=== PATIENT | female | born 1990 | race Caucasian/White ===

== ENCOUNTER 2016-12-07 18:02 | Observation (INO) | payer BC ==
[~2016-12-07] VITALS: Ht 157.5 cm; Wt 73.8 kg
[2016-12-07 19:07] LABS: CHLORIDE 111 mEq/L (99-109); POTASSIUM 3.9 mEq/L (3.7-5.4); SODIUM 144 mEq/L (136-147)
[2016-12-07 19:08] LABS: GLUCOSE 80 mg/dL (70-99)
[2016-12-07 19:10] LABS: ANION GAP 12 MEQ/L (2-14)
[2016-12-07 19:12] LABS: GFR ESTIMATE (CALCULATED) > 59 mL/min/
[2016-12-07 19:13] LABS: UREA NITROGEN (BUN) 15 mg/dL (9-23)
[2016-12-07] MEDS ORDERED: ADVIL,NUPRIN,M200 MG PO (22:26)
[2016-12-07] MEDS ORDERED: PRENATAL TABLE1 EAC3 PO (22:26)
[2016-12-07 23:52] LABS: BASOPHIL COUNT 0.1 K/uL (0-0.1); EOSINOPHIL (%) 0.9 % (0-5); EOSINOPHIL COUNT 0.1 K/uL (0-0.3); HEMATOCRIT 39.3 % (36.0-46.0); IMMATURE GRANULOCYTE (%) 1.2 % (0.0-0.7); IMMATURE GRANULOCYTE COUNT 0.1 K/uL; INSTRUMENT ABS NEUTROPHIL CT 9.2 K/uL; LYMPHOCYTE COUNT 1.1 K/uL (1.0-2.8); MCH 29.2 PG (29.0-34.0); MCHC 33.6 G/DL (30.0-36.0); MCV 86.9 FL (83-99); MEAN PLAT.VOLUME 9.2 uM^3 (9.5-12.4); MONOCYTE COUNT 0.9 K/uL (0-0.8); NEUTROPHIL (%) 79.9 % (45-76); NEUTROPHIL COUNT 9.2 K/uL (1.8-6.4); NRBC (%) 0.3 /100 WBC (0-0); PLATELET COUNT 335 K/uL (156-360); RBC DIS.WIDTH-CV 14.3 % (11.8-14.6); RBC DIS.WIDTH-SD 45.1 % (39-53); RED BLOOD COUNT 4.52 M/uL (3.80-5.20); WHITE BLOOD COUNT 11.5 K/uL (4.1-10.2)
[2016-12-08 01:40] VITALS: BP 162/96
[2016-12-08 04:36] VITALS: BP 161/91
[2016-12-08 07:22] VITALS: BP 158/94
[2016-12-08 07:30] LABS: TROP-I INTERPRETATION NEGATIVE; TROPONIN-I 0.02 ng/mL (0.0-0.30)
[2016-12-08 13:20] VITALS: BP 137/90
[2016-12-08 14:33] LABS: TROP-I INTERPRETATION NEGATIVE; TROPONIN-I < 0.01 ng/mL (0.0-0.30)
[2016-12-08 15:45] VITALS: BP 120/78
[2016-12-08 18:45] LABS: TROP-I INTERPRETATION NEGATIVE; TROPONIN-I < 0.01 ng/mL (0.0-0.30)
[2016-12-08 20:45] VITALS: BP 118/73
[2016-12-09] VITALS: BP 125/74
[2016-12-09 04:22] VITALS: BP 128/78
[2016-12-09 08:26] VITALS: BP 120/81
[2016-12-09 09:06] LABS: HEMATOCRIT 44.9 % (36.0-46.0); MCH 29.1 PG (29.0-34.0); MCV 88.2 FL (83-99); MEAN PLAT.VOLUME 9.4 uM^3 (9.5-12.4); PLATELET COUNT 377 K/uL (156-360); RBC DIS.WIDTH-SD 45.1 % (39-53); RED BLOOD COUNT 5.09 M/uL (3.80-5.20); WHITE BLOOD COUNT 7.7 K/uL (4.1-10.2)
[2016-12-09 09:38] LABS: ANION GAP 11 MEQ/L (2-14); CHLORIDE 102 MEQ/L (99-109); GFR ESTIMATE (CALCULATED) > 59 mL/min/; GLUCOSE 77 mg/dL (70-99); POTASSIUM 4.2 MEQ/L (3.7-5.4); SAMPLE HEMOLYSIS CHECK 0; SAMPLE ICTERIC CHECK 0; SAMPLE LIPEMIA CHECK 0; SODIUM 141 MEQ/L (136-147); UREA NITROGEN (BUN) 14 mg/dL (9-23)
[2016-12-09 11:19] VITALS: BP 116/74
[2016-12-09] MEDS ORDERED: AMOX TR-K CLV1 EAC4 PO (11:59)
[2016-12-09] MEDS ORDERED: HYDROCHLOROTH12.5 M3 PO (12:00)
== END 2016-12-09 13:17 | disposition home or self-care (01) ==
LOC: EME 18:02 → EDOF 23:21 → 2EASTP 23:21 → EDOF 23:21 → 2EASTP 12-08 01:10
PROVIDERS: Emergency Medicine; Hospitalist; Physician Assistant
DX: O90.3 Peripartum cardiomyopathy (principal); J18.9 Pneumonia, unspecified organism; R06.02 Shortness of breath; R09.02 Hypoxemia; Z95.0 Presence of cardiac pacemaker; Q24.6 Congenital heart block; E87.70 Fluid overload, unspecified; I10 Essential (primary) hypertension; I95.9 Hypotension, unspecified
CPT/HCPCS: 71010; 71275; 80048; 83880; 84484; 85025; 85025 91; 85027; 93005; 93306; 93970; 99281; 99285; G0378; J1650; J1940